=== PATIENT | female | born 1975 | race Caucasian/White ===

== ENCOUNTER → 2017-07-05 | Outpatient (CLI) | payer OTHER ==
[~2017-07-05] MED LIST: AMOXICILLIN 8751 TAB PO; CIMZIA200 MG/ML SC; CLARITIN 1010 MG/TAB PO; EFFEXOR-XR150 MG PO; FLONASEALLERGY NS; FOLIC ACID 11 MG/TA1 PO; METHOTREXA2.5 MG/TAB PO; MULTI VITAMINS1 TAB PO; NORTREL 35 MCG-1 TA1 PO; PLAQUENIL 200M200 MG PO; SYNTHROID0.088 MG/T PO; TRIAMCINOLONE TOP; VITAMIN D1000 IU PO; VOLTAREN 50MG T50 MG PO
== END ==
LOC: MC.RAD 11:40
DX: Z12.31 Encounter for screening mammogram for malignant neoplasm of breast (principal)